=== PATIENT | female | born 1945 | race Caucasian/White ===

== ENCOUNTER 2017-06-01 23:48 | Emergency (ER) | payer MEDICARE, OTHER ==
[~2017-06-01] VITALS: Ht 167.6 cm; Wt 82.6 kg
[~2017-06-01 23:48] MED LIST: CELEXA10 MG PO; LORAZEPAM2 MG PO
[2017-06-02 01:38] LABS: BASOPHILS % 0.2 % (0.0-1.0); EOSINOPHILS # (AUTO) 0.1 (0.0-0.4); HEMATOCRIT 38.6 % (34.2-44.1); HEMOGLOBIN 13.4 g/dL (12.0-16.0); LYMPHOCYTES # (AUTO) 1.7 (1.0-3.2); LYMPHOCYTES % 15.2 % (18.0-39.1); MEAN CORPUSCULAR HEMOGLOBIN 31.3 pg (28-32); MEAN CORPUSCULAR HGB CONC 34.7 g/dL (31-35); MEAN CORPUSCULAR VOLUME 90.2 fL (81-99); MONOCYTES # (AUTO) 0.8 (0.2-0.8); MONOCYTES % 6.9 % (4.4-11.3); NEUTROPHILS # (AUTO) 8.7 (2.1-6.9); NEUTROPHILS % 76.3 % (38.7-80.0); PLATELET COUNT 331 x10e3/uL (140-360); RED BLOOD COUNT 4.28 x10e6/uL (3.6-5.1)
[2017-06-02 01:39] LABS: BILIRUBIN,URINE NEGATIVE (NEGATIVE); CLARITY,URINE CLEAR (CLEAR); COLOR,URINE YELLOW (YELLOW); KETONES,URINE NEGATIVE (NEGATIVE); LEUKOCYTE ESTERASE ,URINE 1+ (NEGATIVE); NITRITE,URINE NEGATIVE (NEGATIVE); PROTEIN,URINE DIPSTICK NEGATIVE (NEGATIVE); URINE UROBILINOGEN 0.2 mg/dL (0.2 - 1)
--- NOTE | 2017-06-02 01:40 | Diagnostic Imaging Report ---
EXAM: CT ABDOMEN AND PELVIS without IV CONTRAST INDICATION: Abdominal pain, left flank pain COMPARISON: None TECHNIQUE: The abdomen and pelvis were scanned using a multidetector helical scanner. Coronal and sagittal reformations were obtained. Routine protocol performed. IV Contrast: None Oral Contrast: None CTDIvol has been reviewed. It is below the limits set by the Radiation Protocol Committee (RPC). FINDINGS: LOWER THORAX: Partially visualized nonspecific focal groundglass opacity in the lingula. LIVER: No masses BILIARY: Normal gallbladder. No ductal dilation. SPLEEN: No masses PANCREAS: No masses ADRENALS: No nodules RIGHT KIDNEY: No nephroureterolithiasis or hydronephrosis. LEFT KIDNEY: No nephroureterolithiasis or hydronephrosis. GI TRACT: Hiatal hernia with the entire stomach intrathoracic. The small and large bowel are unremarkable. VESSELS: Unremarkable PERITONEUM/RETROPERITONEUM: No free air or fluid LYMPH NODES: No lymphadenopathy REPRODUCTIVE ORGANS: Normal BLADDER: Normal SOFT TISSUES: Calcified buttock granulomas. Several radiopaque foreign bodies in the anterior right breast and subcutaneous tissues of the right abdomen. BONES: No suspicious bone lesions. IMPRESSION: No nephroureterolithiasis. No CT findings to explain patient's left flank pain. Large hiatal hernia with the entire stomach intrathoracic. No evidence of obstruction. Signed by: Dr. Arleen Francois M.D. on 06/02/2017 1:37 AM
[2017-06-02 02:04] LABS: ALANINE AMINOTRANSFERASE 27 IU/L (0-55); ALBUMIN 4.3 g/dL (3.5-5.0); ALBUMIN/GLOBULIN RATIO 1.2 (0.8-2.0); ALKALINE PHOSPHATASE 100 IU/L (40-150); ANION GAP 17.2 mmol/L (8-16); BLOOD UREA NITROGEN 15 mg/dL (7-26); BUN/CREATININE RATIO 18 (6-25); CALCIUM 9.7 mg/dL (8.4-10.2); CARBON DIOXIDE 21 mmol/L (22-29); CHLORIDE 102 mmol/L (98-107); CREATINE KINASE 265 IU/L (29-168); CREATININE, SERUM 0.82 mg/dL (0.57-1.11); EST GLOMERULAR FILTRATION RATE > 60 ML/MIN (60-); GLUCOSE 98 mg/dL (74-118); MAGNESIUM 2.4 MG/DL (1.3-2.1); POTASSIUM 4.2 mmol/L (3.5-5.1); SODIUM 136 mmol/L (136-145)
[2017-06-02 02:05] LABS: BACTERIA,URINE RARE /HPF; EPITHELIAL CELLS,URINE RARE /LPF; RBC,URINE 0-5 /HPF (0-5); WBC,URINE (MAN) 0-5 /HPF (0-5)
[2017-06-02 02:11] LABS: INR 1.04; PARTIAL THROMBOPLASTIN TIME 29.5 seconds (23.8-35.5); PROTHROMBIN TIME 12.8 seconds (11.9-14.5)
[2017-06-02] MEDS ORDERED: ONDANSETRON HCL INJ 2 MG/ML VIAL IV STA (03:58)
[2017-06-02] MEDS ORDERED: PANTOPRAZOLE 40 MG 10ML VIAL IV STA (03:58)
[2017-06-02] MEDS ORDERED: KETOROLAC TROMETHAMINE 30 MG/ML VIAL IV STA (03:58)
[2017-06-02] MEDS ORDERED: SODIUM CHLORIDE 0.9% 500ML 500 ML IV ONE (04:00)
== END 2017-06-02 04:50 | disposition home or self-care (01) ==
LOC: ER 23:48
DX: M54.5 Low back pain (principal); R10.32 Left lower quadrant pain; K44.9 Diaphragmatic hernia without obstruction or gangrene; E78.5 Hyperlipidemia, unspecified
CPT/HCPCS: 36415; 74176; 80053; 81001; 82550; 82553; 83735; 84484; 85025; 85610; 85730; 87086; 99284; J1885; J2405; J7040

== ENCOUNTER 2017-06-02 17:00 | Inpatient (IN) | payer MEDICARE, OTHER ==
[~2017-06-02] VITALS: Ht 167.6 cm; Wt 82.6 kg
--- OUTSIDE RECORDS SUMMARY | 2017-06-02 17:03 | XMS REPORT | Continuity of Care Document ---
Author Author [facility] Organization [facility] Address [address] [place] [address] Phone Unavailable Care Team Providers Care Beam Racker Name Role Phone KATT TRINIDAD MD PCP Insurance Providers Guarantor Dwayne Urena Address [address] [address] Email [email or web address] Payer [employer] Ind[employer] Policy Number [id number] Subscriber's Name Dwayne Urena Relationship 18 Self / Same As Patient Group Number PLAN N Group Name RETIRED Effective Date 12 Payer Medicare A & B Policy Number [id number] Subscriber's Name Dwayne Urena Relationship 18 Self / Same As Patient Effective Date 08 Advance Directives Directive Response Recorded Date/Time Does the patient have an advance directive? Yes 04/11/15 3:20pm If yes, is advance directive on file with [facility]? No 10/24/12 10:52am If not on file with [facility] will patient provide a copy? Yes 06/01/17 11:45pm Do you have a Directive to Physician? No 06/01/17 11:45pm Do you have a Medical Power of Picker Operator? No 06/01/17 11:45pm Do you have an out of hospital Do Not Resuscitate Order? No 06/01/17 11:45pm Do you have any special needs we should be aware of? No 06/01/17 11:45pm Do you have a support person here with you today? No 06/01/17 11:45pm Did patient receive Notice of Privacy Practices? Yes 06/01/17 11:45pm Did patient receive patient rights and responsibilities? Yes 06/01/17 11:45pm Problems No problem information available. Medications Current Home Medications Medication Dose Units Route Directions Days Qty Instructions Start Date Citalopram Hydrobromide (Celexa) 10 Mg Tablet 10 Mg Oral Daily Lorazepam 2 Mg Tablet 2 Mg Oral Daily Social History Smoking Status Start Date Stop Date Never Smoker Hospital Discharge Instructions No hospital discharge instruction information available. Plan of Care Discharge Date 06/02/17 4:50am Disposition HOME, SELF-CARE Condition at Discharge Stable Instructions/Education Provided Abdominal Pain - Adult Back Pain Hiatal Hernia Prescriptions See Medication Section Referrals KATT TRINIDAD MD Address: [address] [place] [address] [address] [place] [address] PENNY TRINIDAD MD Address: [address] [place] [address] [address] [place] [address] Additional Instructions/Education REST; TAKE MEDICATIONS PRESCRIBED; FOLLOW UP WITH YOUR PCP AND GI DOCTOR; RETURN TO ER NEEDED; Functional Status No functional status information available. Allergies, Adverse Reactions, Alerts No known allergies. Immunizations No immunization information available. Vital Signs Acute Vital Signs Vital Response Date/Time Height 5 ft 6 in 06/02/2017 12:50am Weight 182 lb 06/02/2017 12:50am Body Mass Index 29.4 kg/m^2 06/02/2017 12:50am Results Laboratory Results Test Name Result Units Flags Reference Collection Date/Time Result Date/ Time Comments White Blood Count 11.37 x10e3/uL H 4.8-10.8 06/02/2017 1:00am 2017 1:47am Red Blood Count 4.28 x10e6/uL 3.6-5.1 06/02/2017 1:00am 06/02/2017 1: 47am Hemoglobin 13.4 g/dL 12.0-16.0 06/02/2017 1:00am 06/02/2017 1:47am Hematocrit 38.6 % 34.2-44.1 06/02/2017 1:00am 06/02/2017 1:47am Mean Corpuscular Volume 90.2 fL 81-99 06/02/2017 1:00am 06/02/2017 1: 47am Mean Corpuscular Hemoglobin 31.3 pg 28-32 06/02/2017 1:00am 06/02/2017 1:47am Mean Corpuscular Hemoglobin Concent 34.7 g/dL 31-35 06/02/2017 1:00am 06/02/2017 1:47am Red Cell Distribution Width 13.0 % 11.7-14.4 06/02/2017 1:00am 2017 1:47am Platelet Count 331 x10e3/uL 140-360 06/02/2017 1:00am 06/02/2017 1: 47am Neutrophils (%) (Auto) 76.3 % 38.7-80.0 06/02/2017 1:00am 06/02/2017 1: 47am Lymphocytes (%) (Auto) 15.2 % L 18.0-39.1 06/02/2017 1:00am 06/02/2017 1 :47am Monocytes (%) (Auto) 6.9 % 4.4-11.3 06/02/2017 1:00am 06/02/2017 1: 47am Eosinophils (%) (Auto) 1.0 % 0.0-6.0 06/02/2017 1:00am 06/02/2017 1: 47am Basophils (%) (Auto) 0.2 % 0.0-1.0 06/02/2017 1:00am 06/02/2017 1:47am IM GRANULOCYTES % 0.4 % 0.0-1.0 06/02/2017 1:00am 06/02/2017 1:47am Neutrophils # (Auto) 8.7 H 2.1-6.9 06/02/2017 1:00am 06/02/2017 1: 47am Lymphocytes # (Auto) 1.7 1.0-3.2 06/02/2017 1:00am 06/02/2017 1:47am Monocytes # (Auto) 0.8 0.2-0.8 06/02/2017 1:00am 06/02/2017 1:47am Eosinophils # (Auto) 0.1 0.0-0.4 06/02/2017 1:00am 06/02/2017 1:47am Basophils # (Auto) 0.0 0.0-0.1 06/02/2017 1:00am 06/02/2017 1:47am Absolute Immature Granulocyte (auto 0.05 x10e3/uL 0-0.1 06/02/2017 1: 00am 06/02/2017 1:47am Prothrombin Time 12.8 seconds 11.9-14.5 06/02/2017 1:00am 06/02/2017 2: 17am Prothromb Time International Ratio 1.04 06/02/2017 1:00am 2017 2:17am Oral Anticoagulant Therapy INR Values: 1. Low Intensity Therapy 1.5 - 2.0 2. Moderate Intensity Therapy 2.0 - 3.0 3. High Intensity Therapy(1) 2.5 - 3.5 4. High Intensity Therapy(2) 3.0 - 4.0 5. Panic Value INR > 5.0 Activated Partial Thromboplast Time 29.5 seconds 23.8-35.5 06/02/2017 1: 00am 06/02/2017 2:17am Urine Color YELLOW YELLOW 06/02/2017 1:00am 06/02/2017 1:46am Urine Clarity CLEAR CLEAR 06/02/2017 1:00am 06/02/2017 1:46am Urine Specific Lutz 1.010 1.010-1.025 06/02/2017 1:00am 2017 1:46am Urine pH 7 5 - 7 06/02/2017 1:00am 06/02/2017 1:46am Urine Leukocyte Esterase 1+ H NEGATIVE 06/02/2017 1:00am 06/02/2017 1: 46am Urine Nitrite NEGATIVE NEGATIVE 06/02/2017 1:00am 06/02/2017 1:46am Urine Protein NEGATIVE NEGATIVE 06/02/2017 1:00am 06/02/2017 1:46am Urine Glucose (UA) NEGATIVE NEGATIVE 06/02/2017 1:00am 06/02/2017 1: 46am Urine Ketones NEGATIVE NEGATIVE 06/02/2017 1:00am 06/02/2017 1:46am Urine Urobilinogen 0.2 mg/dL 0.2 - 1 06/02/2017 1:00am 06/02/2017 1: 46am Urine Bilirubin NEGATIVE NEGATIVE 06/02/2017 1:00am 06/02/2017 1: 46am Urine Blood TRACE H NEGATIVE 06/02/2017 1:00am 06/02/2017 1:46am Urine WBC 0-5 /HPF 0-5 06/02/2017 1:00am 06/02/2017 2:06am Urine RBC 0-5 /HPF 0-5 06/02/2017 1:00am 06/02/2017 2:06am Urine Bacteria RARE /HPF NONE 06/02/2017 1:00am 06/02/2017 2:06am Urine Epithelial Cells RARE /LPF NONE 06/02/2017 1:00am 06/02/2017 2: 06am Sodium Level 136 mmol/L 136-145 06/02/2017 1:00am 06/02/2017 2:06am Potassium Level 4.2 mmol/L 3.5-5.1 06/02/2017 1:00am 06/02/2017 2:06am Chloride Level 102 mmol/L 98-107 06/02/2017 1:00am 06/02/2017 2:06am Carbon Dioxide Level 21 mmol/L L 22-29 06/02/2017 1:00am 06/02/2017 2: 06am Anion Gap 17.2 mmol/L H 8-16 06/02/2017 1:00am 06/02/2017 2:06am Blood Urea Nitrogen 15 mg/dL 7-26 06/02/2017 1:00am 06/02/2017 2:06am Creatinine 0.82 mg/dL 0.57-1.11 06/02/2017 1:00am 06/02/2017 2:06am BUN/Creatinine Ratio 18 6-25 06/02/2017 1:00am 06/02/2017 2:06am Estimat Glomerular Filtration Rate > 60 ML/MIN 60- 06/02/2017 1:00am 2:06am Ranges were taken from the National Kidney Disease Education Program and the National Kidney Foundation literature. Reference ranges: 60 or greater: Normal 16-59 (for 3 consecutive months): Chronic kidney disease 15 or less: Kidney failure Glucose Level 98 mg/dL 74-118 06/02/2017 1:00am 06/02/2017 2:06am Calcium Level 9.7 mg/dL 8.4-10.2 06/02/2017 1:00am 06/02/2017 2:06am Magnesium Level 2.4 MG/DL H 1.3-2.1 06/02/2017 1:00am 06/02/2017 2:06am Total Bilirubin 0.4 mg/dL 0.2-1.2 06/02/2017 1:00am 06/02/2017 2:06am Aspartate Amino Transf (AST/SGOT) 29 IU/L 5-34 06/02/2017 1:00am 2017 2:06am Alanine Aminotransferase (ALT/SGPT) 27 IU/L 0-55 06/02/2017 1:00am 2:06am Total Protein 7.8 g/dL 6.5-8.1 06/02/2017 1:00am 06/02/2017 2:06am Albumin 4.3 g/dL 3.5-5.0 06/02/2017 1:00am 06/02/2017 2:06am Globulin 3.5 g/dL 2.3-3.5 06/02/2017 1:00am 06/02/2017 2:06am Albumin/Globulin Ratio 1.2 0.8-2.0 06/02/2017 1:00am 06/02/2017 2: 06am Alkaline Phosphatase 100 IU/L 40-150 06/02/2017 1:00am 06/02/2017 2: 06am Creatine Kinase 265 IU/L H 29-168 06/02/2017 1:00am 06/02/2017 2:06am Creatine Kinase MB 3.10 ng/mL 0-5.0 06/02/2017 1:00am 06/02/2017 2: 27am Troponin I < 0.001 ng/mL 0-0.300 06/02/2017 1:00am 06/02/2017 2:27am Procedures Procedure Status Date Provider(s) CT of abdomen and pelvis without contrast Active 06/02/17 ANITA ZIMMER MD Encounters Encounter Location Arrival/Admit Date Discharge/Depart Date Attending Provider Departed Emergency Room [facility] 06/01/17 11:48pm 06/02 4:50am ANITA ZIMMER MD
--- OUTSIDE RECORDS SUMMARY | 2017-06-02 17:03 | XMS REPORT ---
Author Author [facility] Address Unknown Phone Unavailable Care Team Providers Care Lasting Room Machine Operator Name Role Phone ANITA ZIMMER Unavailable Unavailable Problems This patient has no known problems. Allergies, Adverse Reactions, Alerts This patient has no known allergies or adverse reactions. Medications This patient has no known medications. Results Test Description Test Time Test Comments Text Results Atomic Results Result Comments CT ABDOMEN/PELVIS WO [place] [address] Patient Name: DWAYNE FOX MR #: [id number] : 1945 Age/Sex: 72/F Req #: [id number] Adm Physician: Ordered by: ANITA ZIMMER MD Report #: [id number] Location: ER Room/Bed: Procedure: [id number] CT/CT ABDOMEN/PELVIS WO Exam Date: 06/02/17 Exam Time: 0110 REPORT STATUS: Signed EXAM: CT ABDOMEN AND PELVIS without IV CONTRAST INDICATION: Abdominal pain, left flank pain COMPARISON: None TECHNIQUE: The abdomen and pelvis were scanned using a multidetector helical scanner. Coronal and sagittal reformations were obtained. Routine protocol performed. IV Contrast: None Oral Contrast: None CTDIvol has been reviewed. It is below the limits set by the Radiation Protocol Committee (RPC) . FINDINGS: LOWER THORAX: Partially visualized nonspecific focal groundglass opacity in the lingula. LIVER: No masses BILIARY: Normal gallbladder. No ductal dilation. SPLEEN: No masses PANCREAS: No masses ADRENALS: No nodules RIGHT KIDNEY: No nephroureterolithiasis or hydronephrosis. LEFT KIDNEY: No nephroureterolithiasis or hydronephrosis. GI TRACT: Hiatal hernia with the entire stomach intrathoracic. The small and large bowel are unremarkable. VESSELS: Unremarkable PERITONEUM /RETROPERITONEUM: No free air or fluid LYMPH NODES: No lymphadenopathy REPRODUCTIVE ORGANS: Normal BLADDER: Normal SOFT TISSUES: Calcified buttock granulomas. Several radiopaque foreign bodies in the anterior right breast and subcutaneous tissues of the right abdomen. BONES: No suspicious bone lesions. IMPRESSION: No nephroureterolithiasis. No CT findings to explain patient's left flank pain. Large hiatal hernia with the entire stomach intrathoracic. No evidence of obstruction. Signed by: Dr. Amanda Francois M.D. on 06/02/2017 1:37 AM Dictated By: AMANDA FRANCOIS MD 6 Transcribed By: JUNI on 06/02/17136 COPY TO: ANITA ZIMMER MD
[2017-06-02 18:55] LABS: BILIRUBIN,URINE NEGATIVE (NEGATIVE); CLARITY,URINE SL CLOUDY (CLEAR); COLOR,URINE STRAW (YELLOW); KETONES,URINE NEGATIVE (NEGATIVE); LEUKOCYTE ESTERASE ,URINE TRACE (NEGATIVE); NITRITE,URINE NEGATIVE (NEGATIVE); PROTEIN,URINE DIPSTICK NEGATIVE (NEGATIVE); URINE UROBILINOGEN 0.2 mg/dL (0.2 - 1)
[2017-06-02] MEDS ORDERED: HYDROCODONE/APAP 10MG-325MG TAB PO ONE (19:00)
[2017-06-02] MEDS ORDERED: ONDANSETRON HCL 4 MG ORAL DISINTEGRATING TAB PO ONE (19:00)
[2017-06-02 19:07] LABS: BACTERIA,URINE RARE /HPF; EPITHELIAL CELLS,URINE FEW /LPF; RBC,URINE 0-5 /HPF (0-5); WBC,URINE (MAN) 0-5 /HPF (0-5)
[2017-06-02] MEDS ORDERED: HYDROMORPHONE 1MG/1ML INJ IV STA ×2 (19:28→20:43)
[2017-06-02] MEDS ORDERED: SODIUM CHLORIDE 0.9% 1000ML 1,000 ML IV STA (19:28)
[2017-06-02] MEDS ORDERED: PANTOPRAZOLE 40 MG 10ML VIAL IV STA (19:28)
[2017-06-02] MEDS ORDERED: ONDANSETRON HCL INJ 2 MG/ML VIAL IV STA (19:28)
[2017-06-02] MEDS ORDERED: HYDROMORPHONE 1MG/1ML INJ IV PRN (19:45)
[2017-06-02 20:00] LABS: BASOPHILS % 0.3 % (0.0-1.0); EOSINOPHILS # (AUTO) 0.1 (0.0-0.4); EOSINOPHILS % 1.1 % (0.0-6.0); HEMATOCRIT 40.4 % (34.2-44.1); HEMOGLOBIN 13.8 g/dL (12.0-16.0); LYMPHOCYTES # (AUTO) 2.4 (1.0-3.2); LYMPHOCYTES % 22.8 % (18.0-39.1); MEAN CORPUSCULAR HEMOGLOBIN 31.1 pg (28-32); MEAN CORPUSCULAR HGB CONC 34.2 g/dL (31-35); MONOCYTES # (AUTO) 0.7 (0.2-0.8); MONOCYTES % 6.5 % (4.4-11.3); NEUTROPHILS # (AUTO) 7.2 (2.1-6.9); PLATELET COUNT 332 x10e3/uL (140-360); RED BLOOD COUNT 4.44 x10e6/uL (3.6-5.1)
--- NOTE | 2017-06-02 20:14 | Diagnostic Imaging Report ---
EXAMINATION: CHEST 2 VIEWS 06/02/2017 6:48 PM COMPARISON: None INDICATION: Left flank pain DISCUSSION: LINES: None. LUNGS: Low lung volumes with bibasilar atelectasis. Eventration of the right hemidiaphragm. No evidence of a pneumonia or pulmonary edema. PLEURA: No pleural effusion or pneumothorax. HEART AND MEDIASTINUM: Normal heart size. Tortuous thoracic aorta. Large hiatal hernia. BONES AND SOFT TISSUES: Surgical clips over the right axilla. Multilevel degenerative changes of the thoracic spine. IMPRESSION: Low lung volumes with basilar atelectasis Large hiatal hernia. Roge Joshua MD Signed by: Dr. Roge Joshua M.D. on 06/02/2017 8:10 PM
[2017-06-02 20:19] LABS: ALBUMIN 4.3 g/dL (3.5-5.0); ALBUMIN/GLOBULIN RATIO 1.2 (0.8-2.0); ANION GAP 15.8 mmol/L (8-16); CALCIUM 9.8 mg/dL (8.4-10.2); CREATININE, SERUM 0.95 mg/dL (0.57-1.11); POTASSIUM 3.8 mmol/L (3.5-5.1)
[2017-06-02 20:29] LABS: CREATINE KINASE MB 2.5 ng/mL (0-5.0)
[2017-06-02 21:35] VITALS: BP 179/78
[2017-06-02] MEDS ORDERED: LORAZEPAM 1 MG TAB PO PRN (22:45)
--- NOTE | 2017-06-02 22:54 | Diagnostic Imaging Report ---
History: Acute severe low back pain radiating along the left side. Comparison studies: None Technique: Sagittal, coronal and axial T2 , sagittal T1 and IR, axial T2 FS and PD. Intravenous contrast: None Findings: Number of lumbar vertebral bodies: 5. Alignment: Normal lordosis. Levoscoliosis of the lumbar spine. Soft tissues: No T2 hyperintense inflammatory changes. Paraspinal muscles: No signal abnormalities. Well-preserved. No atrophic changes Lower thoracic cord: Normal in signal and morphology. The tip of the conus is at L1-L2 . Cauda equina: No masses. No arachnoiditis. Vertebrae: Multilevel Schmorl's no particularly at the superior and inferior endplate of L1 and L2. No compression fractures, infection or neoplasm. Degenerative changes: T12-L1: Moderate degenerative disc disease. Disc bulge asymmetric to left effaces anterior thecal sac without significant canal stenosis. No foraminal stenosis. L1-L2: Mild degenerative disc disease. Disc bulge asymmetric to left effaces anterior thecal sac without significant canal stenosis. No foraminal stenosis. L2-L3: Moderate degenerative disc disease with decreased T2 signal, decreased intervertebral disc space and degenerative endplate changes. Disc bulge, thickened ligamentum flavum and right worse than left facet arthrosis effaces thecal sac without significant canal stenosis. Moderate right foraminal stenosis. Moderate bilateral (right worse than left) facet arthrosis with mild amount of fluid in left facet joint. L3-L4: Mild degenerative disc disease with decreased T2 signal. Disc bulge in combination with thickened ligamentum flavum and bilateral mild facet arthrosis without significant canal stenosis. Mild bilateral inferior foraminal stenosis. Small amount of fluid in bilateral facet joints. L4-L5: Moderate degenerative disc disease with decreased T2 signal, decreased intervertebral disc space and degenerative endplate edema. Disc bulge asymmetric to the right with superimposed 3 mm right subarticular/foraminal disc protrusion. Disc bulge in combination with thickened ligamentum flavum and facet arthrosis results in mild canal stenosis. Moderate right and mild left foraminal stenosis. Impingement of right L4 nerve root by disc material. Severe right and moderate left facet arthrosis. L5-S1: Moderate degenerative disc disease with decreased T2 signal and decreased intervertebral disc space. Disc bulge without canal stenosis. No significant foraminal stenosis. Bilateral advanced facet arthrosis with trace amount of fluid in the facet joints. Visualized portion of bilateral sacroiliac joints: No significant abnormality. IMPRESSION: 1. Multilevel moderate lumbar spondylosis, particularly results in mild canal stenosis at L4-L5. 2. Multilevel foraminal stenosis, particularly moderate right at L2-L3, mild bilateral at L3-L4, moderate right and mild left at L4-L5. Impingement of right L4 nerve root by disc material at L4-L5. 3. Multilevel degenerative disc disease and facet arthrosis as detailed above. 4. Levoscoliosis of the lumbar spine. Signed by: Dr. Taryn Moe M.D. on 06/02/2017 10:50 PM
[2017-06-02] MEDS: HYDROMORPHONE 2MG/ML INJ IV PRN (23:47)
[2017-06-03] VITALS (9 sets, daily range): BP systolic 106–179; BP diastolic 57–78
[2017-06-03] MEDS: LISINOPRIL 10 MG TAB PO SCH ×2 (00:20→09:00)
[2017-06-03] MEDS: HYDROMORPHONE 2MG/ML INJ IV PRN ×2 (05:08→14:18)
[2017-06-03] MEDS: SODIUM CHLORIDE 0.9% 1000ML 1,000 ML IV SCH ×2 (05:08→15:18)
[2017-06-03] MEDS ORDERED: HYDROMORPHONE 2MG/ML INJ IV PRN (06:00)
[2017-06-03] MEDS: LIDOCAINE 5% PATCH TP SCH ×2 (06:14→09:00)
[2017-06-03] MEDS: PANTOPRAZOLE 40 MG 10ML VIAL IV SCH (09:32)
[2017-06-03] MEDS: CITALOPRAM HYDROBROMIDE 20 MG TAB PO SCH (09:33)
[2017-06-03] MEDS: ONDANSETRON HCL INJ 2 MG/ML VIAL IV PRN ×2 (10:10→14:19)
--- NOTE | 2017-06-03 10:42 | Diagnostic Imaging Report ---
PROCEDURE:HIPS BILAT 3-4VWS (+/- PELVIS) INDICATION: Hip pain COMPARISON:None. FINDINGS: No acute, displaced fracture or dislocation. Femoral heads project appropriately over the acetabula. Mild symmetric joint space narrowing with marginal acetabular osteophytosis. Sacroiliac joints are intact. Degenerative changes at the symphysis pubis. Partially visualized surgical hardware in the proximal left femoral diaphysis. Scattered calcified soft tissue injection granulomata and pelvic phleboliths. Soft tissues are otherwise unremarkable. CONCLUSION: No acute osseous abnormality. 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 Dictated by: Tony Joel M.D. on 06/03/2017 at 10:42 Electronically approved by: Tony Joel M.D. on 06/03/2017 at 10:42
[2017-06-03] MEDS: KETOROLAC TROMETHAMINE 30 MG/ML VIAL IV SCH ×3 (12:20→23:26)
--- NOTE | 2017-06-03 18:02 | Diagnostic Imaging Report ---
TECHNIQUE: Magnetic resonance imaging of the LEFT HIP was performed WITHOUT injected contrast. HISTORY: Hip pain COMPARISON: None available. FINDINGS: Bone: The bone marrow signal is heterogeneous, compatible with red marrow conversion, no specific evidence of a focal bone marrow replacing abnormality. Partially visualized susceptibility artifacts within the left femoral diaphysis, compatible with metallic hardware. Subchondral bone marrow edema in the parasymphyseal region of the pubic bones, left greater than right. On the left there is subtle associated linear oriented signal (series 2 image 22). Femoroacetabular Joint: Acetabular labrum: Mild attenuation and contour irregularity of the labrum. Articular Cartilage: Low-grade erosion of the weightbearing cartilage. Muscle and tendons: The visualized tendons appear intact. Soft tissues: Otherwise, unremarkable. Other: Degenerative changes of the lumbar spine, please refer to the MRI of the lumbar spine from the same date for further details. IMPRESSION: 1. Reactive subchondral changes of the pubic bones adjacent to the pubic symphysis, left greater than right. On the left, there may be a subtle evolving subchondral insufficiency fracture, especially if the pain localizes to this region. 2. Mild degenerative changes of the left hip, including mild degenerative tearing of the acetabular labrum. Signed by: Dr. Braeden Henderson D.O., M.M.M. on 06/03/2017 5:59 PM
[2017-06-04] VITALS: BP 136/59
[2017-06-04] MEDS: HYDROMORPHONE 2MG/ML INJ IV PRN ×2 (00:47→06:44)
[2017-06-04] MEDS: ONDANSETRON HCL INJ 2 MG/ML VIAL IV PRN ×2 (00:47→06:44)
[2017-06-04] MEDS: SODIUM CHLORIDE 0.9% 1000ML 1,000 ML IV SCH (02:46)
[2017-06-04 04:00] VITALS: BP 101/59
[2017-06-04] MEDS: KETOROLAC TROMETHAMINE 30 MG/ML VIAL IV SCH (06:00)
[2017-06-04 08:00] VITALS: BP 95/52
[2017-06-04] MEDS: LISINOPRIL 10 MG TAB PO SCH (09:00)
[2017-06-04] MEDS: LIDOCAINE 5% PATCH TP SCH (09:45)
[2017-06-04] MEDS: CITALOPRAM HYDROBROMIDE 20 MG TAB PO SCH (09:45)
[2017-06-04] MEDS: PANTOPRAZOLE 40 MG 10ML VIAL IV SCH (09:45)
[2017-06-04] MEDS ORDERED: HYDROMORPHONE 2MG/ML INJ IV PRN (11:30)
[2017-06-04 12:00] VITALS: BP 118/82
[2017-06-04] MEDS ORDERED: CELEBREX100 MG PO (13:09)
[2017-06-04] MEDS ORDERED: ULTRAM50 MG PO (13:10)
== END 2017-06-04 13:48 | disposition home or self-care (01) | DRG 552 ==
LOC: ER 17:00 → MED/SURG2 21:08
DX: M47.26 Other spondylosis with radiculopathy, lumbar region (principal); D63.8 Anemia in other chronic diseases classified elsewhere; I10 Essential (primary) hypertension; M51.16 Intervertebral disc disorders with radiculopathy, lumbar region; E78.5 Hyperlipidemia, unspecified; M16.12 Unilateral primary osteoarthritis, left hip
CPT/HCPCS: 36415; 71046; 72148; 73522; 80053; 81001; 82150; 82550; 82553; 83690; 84484; 85025; 85651; 86140; 97139; 99284; J1170; J1885; J2405; J7030

== ENCOUNTER → 2018-03-21 | Outpatient (CLI) | payer MEDICARE, OTHER ==
[~2018-03-21] MED LIST changes: +CELEBREX100 MG PO; +ULTRAM50 MG PO
--- NOTE | 2018-03-21 13:13 | Diagnostic Imaging Report ---
Cervical Spine, 5 views HISTORY: Pain COMPARISON: None. FINDINGS: Limited sensitivity for detection of subtle fractures and ligamentous abnormalities. On the lateral view, the cervical spine is visualized from the skull base to C6. Limited for C7-T1 on lateral view The alignment is normal. No acute displaced fracture involving the visualized cervical spine. Vertebral body heights are maintained. Multilevel degenerative changes, most severe at C5-C6. Widening of the prevertebral soft tissues, measuring up to 1.2 cm. IMPRESSION: No acute displaced fracture or dislocation of cervical spine. Multilevel degenerative changes. Widening of the prevertebral soft tissues, could be artifactual and due to suboptimal extension. However, underlying lesion cannot be excluded. If clinically indicated CT soft tissue neck can be obtained for further evaluation. Signed by: Dr. Gonzalo Pavon MD on 03/21/2018 1:10 PM
== END ==
LOC: RAD 11:56
DX: M54.2 Cervicalgia (principal)
CPT/HCPCS: 72050

== ENCOUNTER → 2018-12-05 | Outpatient (CLI) | payer MEDICARE, OTHER ==
--- NOTE | 2018-12-05 13:56 | Diagnostic Imaging Report ---
EXAMINATION: SPINE CERVICAL AP LAT FLEX EXT INDICATION: Cervical disc herniation. COMPARISON: Cervical spine MRI of 03/24/2018, cervical spine radiographs of 03/21/2018 FINDINGS: AP and lateral radiographs were obtained in neutral, flexion and extension. The patient is status post anterior cervical discectomy and fusion at C4-C7. Alignment is anatomic. No change in alignment on flexion and extension views. No acute fracture or dislocation. Hardware is intact. Prominence of the prevertebral soft tissues compared to the prior radiographs is likely postoperative. IMPRESSION: Anatomic alignment status post anterior cervical discectomy and fusion from C4 to C7. Signed by: Brianne Schmidt MD on 12/05/2018 1:52 PM
== END ==
LOC: RAD 12:45
PROVIDERS: ATTEND Neurological Surgery
DX: M50.20 Other cervical disc displacement, unspecified cervical region (principal); M43.22 Fusion of spine, cervical region
CPT/HCPCS: 72050

== ENCOUNTER → 2021-06-01 | Outpatient (CLI) | payer MEDICARE, OTHER | LOC: RAD 12:20 | DX: R07.89 Other chest pain (principal) | CPT/HCPCS: 71046 ==

== ENCOUNTER → 2021-06-10 | Outpatient (CLI) | payer MEDICARE, OTHER | LOC: MRI 10:35 | DX: M54.12 Radiculopathy, cervical region (principal) | CPT/HCPCS: 72141 ==

== ENCOUNTER 2021-07-09 08:47 | Outpatient (RCR) | payer MEDICARE, OTHER | END 2021-07-11 | LOC: PT 08:47 | PROVIDERS: ATTEND Neurological Surgery | DX: M54.12 Radiculopathy, cervical region (principal) ==

== ENCOUNTER 2021-07-16 14:50 | Outpatient (RCR) | payer MEDICARE, OTHER | END 2021-08-11 | LOC: PT 14:50 | PROVIDERS: ATTEND Neurological Surgery | DX: M54.12 Radiculopathy, cervical region (principal) ==

== ENCOUNTER 2022-01-17 17:12 | Emergency (ER) | payer MEDICARE, OTHER ==
[~2022-01-17] VITALS: Ht 167.6 cm; Wt 80.7 kg
[2022-01-17] MEDS ORDERED: PREDNISONE 20 MG TAB PO ONE (18:00)
[2022-01-17] MEDS ORDERED: HYDROCODONE/APAP 5MG-325MG TAB PO ONE (18:00)
[2022-01-17] MEDS ORDERED: PREDNISONE 20 MG TAB ONE (18:21)
[2022-01-17] MEDS ORDERED: HYDROCODONE/APAP 5MG-325MG TAB ONE (18:22)
[2022-01-17] MEDS ORDERED: CYCLOBENZAPRINE5 MG PO (18:32)
[2022-01-17] MEDS ORDERED: PREDNISONE20 MG PO (18:33)
[2022-01-17] MEDS ORDERED: ACETAMINOPHEN-1 EAC4 PO (18:35)
== END 2022-01-17 18:48 | disposition home or self-care (01) ==
LOC: FSED 17:18
DX: M54.12 Radiculopathy, cervical region (principal); I10 Essential (primary) hypertension; F41.9 Anxiety disorder, unspecified; Z79.899 Other long term (current) drug therapy
CPT/HCPCS: 99282; J7512

== ENCOUNTER 2022-06-06 22:53 | Emergency (ER) | payer MEDICARE, OTHER ==
[~2022-06-06] VITALS: Ht 167.6 cm; Wt 81.6 kg
[~2022-06-06 22:53] MED LIST changes: +ACETAMINOPHEN-1 EAC4 PO; +CYCLOBENZAPRINE5 MG PO; +PREDNISONE20 MG PO
[2022-06-07] MEDS ORDERED: IBUPROFEN 600 MG TAB PO STA (00:32)
[2022-06-07] MEDS ORDERED: CEFDINIR300 MG PO (00:36)
[2022-06-07] MEDS ORDERED: PYRIDIUM200 MG PO (00:36)
[2022-06-07] MEDS ORDERED: IBUPROFEN 600 MG TAB ONE (00:59)
[2022-06-07 04:46] VITALS: BP 141/71
== END 2022-06-07 00:46 | disposition home or self-care (01) ==
LOC: FSED 23:29
DX: N30.01 Acute cystitis with hematuria (principal); I10 Essential (primary) hypertension; E78.5 Hyperlipidemia, unspecified; E78.00 Pure hypercholesterolemia, unspecified; F41.9 Anxiety disorder, unspecified; Z85.3 Personal history of malignant neoplasm of breast
CPT/HCPCS: 81003; 99283

== ENCOUNTER → 2022-07-20 | Outpatient (CLI) | payer MEDICARE, OTHER ==
[~2022-07-20] MED LIST changes: +CEFDINIR300 MG PO; +PYRIDIUM200 MG PO
== END ==
LOC: DX 14:05
PROVIDERS: ATTEND Internal Medicine
DX: Z13.820 Encounter for screening for osteoporosis (principal); R60.9 Edema, unspecified
CPT/HCPCS: 77080; 93971

== ENCOUNTER 2022-08-28 10:00 | Emergency (ER) | payer MEDICARE, OTHER ==
[~2022-08-28] VITALS: Ht 167.6 cm; Wt 78.9 kg
[2022-08-28] MEDS ORDERED: SODIUM CHLORIDE 0.9% 1000ML 1,000 ML IV SCH (11:30)
[2022-08-28] MEDS ORDERED: SODIUM CHLORIDE 0.9% 1000ML 1,000 ML ONE (11:33)
[2022-08-28] MEDS ORDERED: CEFTRIAXONE 1 GM VIAL ONE (11:34)
[2022-08-28] MEDS ORDERED: CEFUROXIME500 MG PO (12:59)
[2022-08-28] MEDS ORDERED: PYRIDIUM200 MG PO (13:01)
[2022-08-28 13:02] VITALS: O2SAT 97
== END 2022-08-28 13:12 | disposition home or self-care (01) ==
LOC: FSED 10:18
DX: R30.0 Dysuria (principal); N30.01 Acute cystitis with hematuria; D72.829 Elevated white blood cell count, unspecified; I10 Essential (primary) hypertension; E78.5 Hyperlipidemia, unspecified; E03.9 Hypothyroidism, unspecified; F41.9 Anxiety disorder, unspecified; Z85.3 Personal history of malignant neoplasm of breast
CPT/HCPCS: 74176; 80048; 80076; 81003; 85025; 87086; 87186; 99284; J0696; J7030

== ENCOUNTER 2023-06-28 14:58 | Outpatient (RCR) | payer MEDICARE ==
[~2023-06-28 14:58] MED LIST changes: +CEFUROXIME500 MG PO; +CYCLOBENZAPRINE10 MG PO; +HYDROCODON-ACE1 EA12 PO; +KETOROLAC TROME10 MG; +LEVOTHYROXINE100 MCG PO; +LOSARTAN POTASS50 MG PO; +MELOXICAM7.5 MG PO; +METHOCARBAMOL750 MG PO; +METOPROLOL SUCC50 MG PO; +PREDNISONE10 MG PO; +ULTRAM 50MG50 MG PO
== END 2023-07-12 ==
LOC: PT 14:58
PROVIDERS: ATTEND Neurological Surgery
DX: M51.16 Intervertebral disc disorders with radiculopathy, lumbar region (principal); M62.81 Muscle weakness (generalized); R26.89 Other abnormalities of gait and mobility